=== PATIENT | female | born 1940 | race Caucasian/White ===

== ENCOUNTER → 2016-12-15 | Outpatient (CLI) | payer MEDICARE ==
[~2016-12-15] MED LIST: ACET1CAP18 PO; ASPI81CH7 CHEW; ATOR40TA16 PO; BACT2OIN TOPICAL; BEANTAB2 PO; BETH25 PO; CALCCHW25 CHEW; CENTTAB8 PO; COEN200C4 PO; COQ-100C2; CYCL5TAB PO; FEXO15TA PO; HYDR-3366 PO; HYOS0.127 PO; LACT3000; LACT4500 CHEW; LIPI40TA PO; LORA10TA PO; LYRI75CA PO; MECL-62 PO; MEIJ25CA; METO50TA PO; MULTTAB67 PO; NITRO QUICK SL; NORC5TAB PO; OLME1TAB13 PO; PROM25TA5 PO; SIME180C PO; TRAM50TA PO; TYLE325T PO; ZOFR4TAB3 SL; [UNRECOGNIZED DRUG - CODE] PO
[2016-12-15 13:48] LABS: FREE T4 0.98 NG/DL (0.76-1.46)
== END ==
LOC: PLAB 10:23
PROVIDERS: ATTEND Internal Medicine Endocrinology, Diabetes & Metabolism
DX: E04.2 Nontoxic multinodular goiter (principal)
CPT/HCPCS: 36415; 84439; 84443

== ENCOUNTER → 2017-03-09 | Outpatient (CLI) | payer MEDICARE ==
[2017-03-09 13:23] LABS: AUTOMATED NEUTROPHIL # 4.8 TH/MM3 (1.8-7.7); BASOPHIL % 0.4 % (0.0-2.0); EOSINOPHIL # 0.1 TH/MM3 (0-0.4); EOSINOPHIL % 1.1 % (0.0-4.0); HEMATOCRIT 39.4 % (35.0-46.0); HEMO FLAGS DIFF FINAL; LYMPH % 19.6 % (9.0-44.0); LYMPHOCYTE # 1.3 TH/MM3 (1.0-4.8); MEAN CELL VOLUME 91.1 FL (80.0-100.0); MEAN CORPUSCULAR HEMOGLOBIN 30.8 PG (27.0-34.0); MEAN CORPUSCULAR HGB CONC 33.9 % (32.0-36.0); MONO % 7.9 % (0.0-8.0); PLATELET COUNT 223 TH/MM3 (150-450); RED BLOOD COUNT 4.33 MIL/MM3 (4.00-5.30); RED CELL DISTRIBUTION WIDTH 14.3 % (11.6-17.2); WHITE BLOOD COUNT 6.7 TH/MM3 (4.0-11.0)
[2017-03-09 13:47] LABS: ALKALINE PHOSPHATASE 106 U/L (45-117); ALT (GPT) 29 U/L (10-53); ANION GAP 10 MEQ/L (5-15); AST (GOT) 17 U/L (15-37); BICARBONATE 27.4 MEQ/L (21.0-32.0); BLOOD UREA NITROGEN 15 MG/DL (7-18); CHLORIDE 100 MEQ/L (98-107); GLOMERULAR FILTRATION RATE 64 ML/MIN (>89); GLUCOSE,FASTING 104 MG/DL (74-99); HDL CHOLESTEROL 50.7 MG/DL (40.0-60.0); LDL CHOLESTEROL 108 MG/DL (0-99); POTASSIUM 4.1 MEQ/L (3.5-5.1); SODIUM (NA) 137 MEQ/L (136-145); TOTAL BILIRUBIN ADULT 0.4 MG/DL (0.2-1.0)
[2017-03-09 17:02] LABS: HEMOGLOBIN A1b 1.1 %; HEMOGLOBIN Ao 84.3 %; HEMOGLOBIN F 1.2 %; HEMOGLOBIN LA1C 1.9 %; HEMOGLOBIN P3 3.8 %
== END ==
LOC: PLAB 10:30
PROVIDERS: ATTEND Family Medicine
DX: E78.5 Hyperlipidemia, unspecified (principal); R73.01 Impaired fasting glucose; E04.2 Nontoxic multinodular goiter; E55.9 Vitamin D deficiency, unspecified
CPT/HCPCS: 36415; 80053; 80061; 82306; 83036; 84443; 85025

== ENCOUNTER 2017-04-06 03:54 | Observation (INO) | payer MEDICARE ==
[~2017-04-06] VITALS: Ht 172.7 cm; Wt 86.4 kg
[~2017-04-06 03:54] MED LIST changes: -ACET1CAP18 PO; -ATOR40TA16 PO; -BACT2OIN TOPICAL; -COQ-100C2; -LACT4500 CHEW; -ZOFR4TAB3 SL; -[UNRECOGNIZED DRUG - CODE] PO
[2017-04-06 03:56] VITALS: BP 132/60; PULSE 79; RESP 20; TEMP 97.6; O2SAT 95
[2017-04-06] MEDS ORDERED: SODIUM CHLOR 0.9% 1000 ML INJ 1,000 ML IV SCH ×2 (04:11→09:15)
[2017-04-06] MEDS ORDERED: ONDANSETRON HCL 4 MG/2 ML VIAL IVP ONE (04:15)
[2017-04-06] MEDS ORDERED: PANTOPRAZOLE SODIUM 40 MG VIAL IVP ONE (04:15)
[2017-04-06] MEDS ORDERED: SODIUM CHLORIDE 0.9% FLUSH 10 ML FLUSH IV FLUSH PRN ×2 (04:15→09:30)
[2017-04-06 04:35] LABS: AUTOMATED NEUTROPHIL # 9.9 TH/MM3 (1.8-7.7); BASOPHIL % 0.3 % (0.0-2.0); EOSINOPHIL # 0.1 TH/MM3 (0-0.4); EOSINOPHIL % 0.6 % (0.0-4.0); HEMATOCRIT 39.1 % (35.0-46.0); HEMO FLAGS DIFF FINAL; LYMPH % 4.4 % (9.0-44.0); LYMPHOCYTE # 0.5 TH/MM3 (1.0-4.8); MEAN CELL VOLUME 91.8 FL (80.0-100.0); MEAN CORPUSCULAR HEMOGLOBIN 30.6 PG (27.0-34.0); MEAN CORPUSCULAR HGB CONC 33.3 % (32.0-36.0); MONO % 2.6 % (0.0-8.0); NEUT % 92.1 % (16.0-70.0); PLATELET COUNT 193 TH/MM3 (150-450); RED BLOOD COUNT 4.26 MIL/MM3 (4.00-5.30); RED CELL DISTRIBUTION WIDTH 14.1 % (11.6-17.2); WHITE BLOOD COUNT 10.7 TH/MM3 (4.0-11.0)
[2017-04-06 04:44] LABS: APTT (PATIENT) 24.5 SEC (24.3-30.1); INTERNATIONAL NORMALIZED RATIO 1.1 RATIO; PROTHROMBIN TIME - PATIENT 11.7 SEC (9.8-11.6)
[2017-04-06] MEDS ORDERED: ACETAMINOPHEN 325 MG TAB PO ONE (04:45)
[2017-04-06 05:13] LABS: BICARBONATE 25.4 MEQ/L (21.0-32.0); POTASSIUM 3.9 MEQ/L (3.5-5.1)
[2017-04-06 05:15] LABS: INDIRECT BILIRUBIN 0.3 MG/DL (0.0-0.8); TOTAL BILIRUBIN ADULT 0.4 MG/DL (0.2-1.0)
[2017-04-06] MEDS ORDERED: IOHEXOL 350 MG/ML 10 ML VIAL (for RAD DIAG) IV ONE (05:37)
[2017-04-06] MEDS ORDERED: MORPHINE SULFATE 4 MG/ML INJ IV PUSH ONE (06:00)
[2017-04-06 06:02] LABS: BACTERIA, URINE RARE /hpf; BLOOD, URINE MOD (NEG); COMMENT (UR) CULT NOT INDICATED; CULTURE IF INDICATED CULT NOT INDICATED; GLUCOSE,URINE NEG (NEG); HYALINE CAST, URINE 3 /lpf (RARE); KETONE, URINE NEG (NEG); MUCUS URINE FEW /lpf (OCC); NITRITE,URINE NEG (NEG); RENAL EPITHELIAL CELLS <1 /hpf; SQUAMOUS EPITHELIAL CELL URINE <1 /hpf (0-5); TRANSITIONAL EPI CELLS, URINE <1 /hpf; URINE COLOR LIGHT-YELLOW (YELLW/STRAW)
--- NOTE | 2017-04-06 06:07 | RADRPT ---
EXAM DATE/TIME: 04/06/2017 05:27 [place] COMPARISON: No previous studies available for comparison. INDICATIONS : Vomiting and diarrhea today. IV CONTRAST: 90 cc Omnipaque 350 (iohexol) IV ORAL CONTRAST: No oral contrast ingested. RADIATION DOSE: 19.38 CTDIvol (mGy) MEDICAL HISTORY : Hypertension. Gastritis. CAD. Skin cancer. SURGICAL HISTORY : CABG Hysterectomy.Fusion, lumbar.Cardiac catherization. Ordaz rods. ENCOUNTER: Initial ACUITY: 1 day PAIN SCALE: 3/10 LOCATION: Bilateral upper quadrant TECHNIQUE: Volumetric scanning of the abdomen and pelvis was performed. Using automated exposure control and ad justment of the mA and/or kV according to patient size, radiation dose was kept as low as reasonably achievable to obtain optimal diagnostic quality images. FINDINGS: LOWER LUNGS: The visualized lower lungs are clear. LIVER: Homogeneous density without lesion. There is no dilation of the biliary tree. No calcified gallston es. There is mild hepatic steatosis. The gallbladder is unremarkable. SPLEEN: Normal size without lesion. PANCREAS: Within normal limits. KIDNEYS: Normal in size and shape. There is no mass, stone or hydronephrosis. ADRENAL GLANDS: Within normal limits. VASCULAR: There is no aortic aneurysm. BOWEL/MESENTERY: There is a small hiatal hernia. The stomach, small bowel, and colon demonstrate no acute abnormality. There is no free intraperitoneal air or fluid. ABDOMINAL WALL: Within normal limits. RETROPERITONEUM: There is no lymphadenopathy. BLADDER: No wall thickening or mass. REPRODUCTIVE: Within normal limits. INGUINAL: There is no lymphadenopathy or hernia. MUSCULOSKELETAL: Osteopenia, degenerative change and mild scoliosis is present. There are postoperative changes in the lumbar spine. CONCLUSION: 1. Nonobstructive bowel gas pattern with no inflammatory change. The terminal ileum and appendix are unremarkable. 2. Unremarkable gallbladder. 3. Mild hepatic steatosis. 4. Small hiatal hernia. Rolf Watkins MD on April 06, 2017 at 6:03 Board Certified Radiologist. This report was verified electronically.
[2017-04-06] MEDS ORDERED: SODIUM CHLOR 0.9% 1000 ML INJ 1,000 ML IV ONE (06:30)
--- NOTE | 2017-04-06 06:40 | PD ---
HPI Chief Complaint: GI Complaint Time Seen by Provider: 04:11 Travel History International Travel<30 days: No Contact w/Intl Traveler<30days: No Traveled to known affect area: No History of Present Illness HPI Patient is a 76-year-old female comes in complaining of nausea, vomiting, diarrhea. She says that it started tonight, she vomited several times and had diarrhea. She says she tried to go to sleep, but she woke up again and vomited again. She says she has some mild abdominal pain, but mostly she just feels queasy. She has not had any fever or chills. She says that she had a spinal injection performed yesterday morning, and did not seem to have any issues with it at the time. She denies any back pain currently. She denies any chest pain or shortness of breath. PFSH Past Medical History Arthritis: Yes Asthma: No Autoimmune Disease: Yes (FIBROMYALGIA) Blood Disorders: No Anxiety: Yes Depression: No Heart Rhythm Problems: Yes (PRIOR/DURING,AND AFTER CABG BUT HAS SINCE GONE AWAY ) Cancer: Yes (SKIN) Cardiac Catheterization: Yes Cardiovascular Problems: Yes (HTN, CAD, HEART CATH, AND (3) VESSEL CABG) High Cholesterol: Yes Chest Pain: Yes Congestive Heart Failure: No COPD: No Cerebrovascular Accident: No Coronary Artery Disease: Yes Diabetes: No Diminished Hearing: No Endocrine: No Fibromyalgia: Yes Gastrointestinal Disorders: Yes (LACTOSE IN JERILYN, GASTRITIS ) GERD: No Glaucoma: No Hepatitis: No Hiatal Hernia: No Hypertension: Yes Immune Disorder: No Kidney Stones: No Musculoskeletal: Yes (RIB AND STERNAL PAIN FIBROMYALGIA) Neurologic: No Psychiatric: No Reproductive: No Respiratory: No Migraines: No Myocardial Infarction: No Renal Failure: No Seizures: No Sleep Apnea: No Thyroid Disease: Yes (SMALL GOITER) Ulcer: No PNEUMOCCOCAL Vaccine (Year): 2010 ?: Not Past Surgical History Abdominal Surgery: No Appendectomy: No Body Medical Devices: MELENDEZ RODS IN BACK. Cardiac Surgery: Yes (TRIPLE BYPASS) Cholecystectomy: No Coronary Artery Bypass Graft: Yes (3WAY BYPASS IN 2007) Ear Surgery: No Endocrine Surgery: No Eye Surgery: No Genitourinary Surgery: No Gynecologic Surgery: Yes (HYST 2000) Hysterectomy: Yes Oral Surgery: No Pacemaker: No Thoracic Surgery: No Other Surgery: Yes (BACK 1983, HYSTERECTOMY) Social History Alcohol Use: Yes (OCCASIONAL) Tobacco Use: No Substance Use: No Allergies-Medications (Allergen,Severity, Reaction): Coded Allergies: Azithromycin (Verified Allergy, Severe, Nausea/Vomiting, 04/05/17) Bactrim (Verified Allergy, Severe, Hallucinations, 04/05/17) Zithromax (Verified Allergy, Severe, hives, 04/05/17) Indocin (Unverified Adverse Reaction, Severe, Nausea/Vomiting, 04/05/17) Lactose (Verified Adverse Reaction, Severe, GI INTOLERANT, 04/05/17) Reported Meds & Prescriptions Reported Meds & Active Scripts Active Phenergan (Promethazine HCl) 25 Mg Tab 25 Mg PO Q6H PRN Tramadol (Tramadol HCl) 50 Mg Tab 50 Mg PO Q8H PRN Reported Allyn Allergy (Fexofenadine HCl) 180 Mg Tab 180 Mg PO DAILY Lactaid (Lactase) 3,000 Unit Tab Antihistamine Allergy (Diphenhydramine HCl) 25 Mg Cap Multiple Vitamin 1 Tab 1 Tab PO DAILY Flexeril (Cyclobenzaprine HCl) 5 Mg Tab 5 Mg PO TID Lipitor (Atorvastatin Calcium) 40 Mg Tab 40 Mg PO HS Gas Relief (Simethicone) 180 Mg Cap 1 Cap PO DAILY Beano (Wlydp-I-Rokaxsfhvhzxl) 150 Unit Tab 300 Mg PO TID PRN Aspirin Children's (Aspirin) 81 Mg Chew 81 Mg CHEW DAILY Calcium + D & K (Calcium-Vitamins D & K) 500-1,000-40 Mg-Unit-Mcg Chew 1 Tab CHEW DAILY Coenzyme Q-10 High Potency (Coenzyme Q10 (Ubidecarenone)) 200 Mg Cap 100 Mg PO DAILY [place] (Hydrocodone-Acetaminophen) 10-325 Mg Tab 1 Tab PO Q6H PRN [place] (Hydrocodone-Acetaminophen) 5-325 mg Tab 1 Tab PO Q6H PRN Hyoscyamine Sulfate 0.125 Mg Sub 1 Tab PO PRN Loratadine 10 Mg Tab 10 Mg PO DAILY Meclizine (Meclizine HCl) 25 Mg Tab 25 Mg PO DIRECTED PRN Metoprolol Tartrate 50 Mg Tab 50 Mg PO BID Centrum Adults (Multiple Vitamins W/ Minerals) 1 Tab 1 Tab PO DAILY [Nitro-Quick] 0.4 Mg SL PRN Olmesartan 40 Mg Tab 40 Mg PO DAILY Lyrica (Pregabalin) 75 Mg Cap 50 Mg PO BID Tylenol (Acetaminophen) 325 Mg Tab 325 Mg PO BID PRN Urecholine (Bethanechol Chloride) 25 Mg Tab 25 Mg PO Q8HR Review of Systems Except as stated in HPI: all other systems reviewed are Neg General / Constitutional: No: Fever, Chills HENT: No: Headaches, Lightheadedness Cardiovascular: No: Chest Pain or Discomfort Respiratory: No: Shortness of Breath Gastrointestinal: Positive: Nausea, Vomiting, Diarrhea Genitourinary: No: Dysuria Skin: No Rash Neurologic: No: Weakness, Dizziness Physical Exam Narrative GENERAL: Awake and alert, in no acute distress. SKIN: Focused skin assessment warm/dry. HEAD: Atraumatic. Normocephalic. EYES: Pupils equal and round. No scleral icterus. ENT: Mucous membranes pink and moist. NECK: Trachea midline. No JVD. CARDIOVASCULAR: Regular rate and rhythm. No murmur appreciated. RESPIRATORY: No accessory muscle use. Clear to auscultation. Breath sounds equal bilaterally. GASTROINTESTINAL: Abdomen soft, non-tender, nondistended. MUSCULOSKELETAL: No obvious deformities. No clubbing. No cyanosis. No edema. NEUROLOGICAL: Awake and alert. No obvious cranial nerve deficits. Motor grossly within normal limits. Normal speech. PSYCHIATRIC: Appropriate mood and affect; insight and judgment normal. Data Data Last Documented VS Vital Signs Date Time Temp Pulse Resp B/P Pulse Ox O2 Delivery O2 Flow Rate FiO2 04/06/17 03:56 97.6 04/06/17 03:56 79 20 132/60 95 Orders Basic Metabolic Panel (Bmp) (04/06/17 04:11) Complete Blood Count With Diff (04/06/17 04:11) Lipase (04/06/17 04:11) Lactic Acid (04/06/17 04:11) Prothrombin Time / Inr (Pt) (04/06/17 04:11) Act Partial Throm Time (Ptt) (04/06/17 04:11) Urinalysis - C+S If Indicated (04/06/17 04:11) Ua Includes Microscopic (04/06/17 04:11) Ct Abd/Pel W Iv Contrast(Rout) (04/06/17 04:11) Iv Access Insert/Monitor (04/06/17 04:11) Ecg Monitoring (04/06/17 04:11) Oximetry (04/06/17 04:11) Ondansetron Inj (Zofran Inj) (04/06/17 04:15) Pantoprazole Inj (Protonix Inj) (04/06/17 04:15) Sodium Chlor 0.9% 1000 Ml Inj (Ns 1000 M (04/06/17 04:11) Sodium Chloride 0.9% Flush (Ns Flush) (04/06/17 04:15) Electrocardiogram (04/06/17 04:11) Hepatic Functional Panel (04/06/17 04:11) Acetaminophen (Tylenol) (04/06/17 04:45) Iohexol 350 Inj (Omnipaque 350 Inj) (04/06/17 05:37) Morphine Inj (Morphine Inj) (04/06/17 06:00) Sodium Chlor 0.9% 1000 Ml Inj (Ns 1000 M (04/06/17 06:30) Labs Laboratory Tests Test 04/06/17 04/06/17 04:20 05:45 White Blood Count 10.7 TH/MM3 Red Blood Count 4.26 MIL/MM3 Hemoglobin 13.0 GM/DL Hematocrit 39.1 % Mean Corpuscular Volume 91.8 FL Mean Corpuscular Hemoglobin 30.6 PG Mean Corpuscular Hemoglobin 33.3 % Concent Red Cell Distribution Width 14.1 % Platelet Count 193 TH/MM3 Mean Platelet Volume 7.4 FL Neutrophils (%) (Auto) 92.1 % Lymphocytes (%) (Auto) 4.4 % Monocytes (%) (Auto) 2.6 % Eosinophils (%) (Auto) 0.6 % Basophils (%) (Auto) 0.3 % Neutrophils # (Auto) 9.9 TH/MM3 Lymphocytes # (Auto) 0.5 TH/MM3 Monocytes # (Auto) 0.3 TH/MM3 Eosinophils # (Auto) 0.1 TH/MM3 Basophils # (Auto) 0.0 TH/MM3 CBC Comment DIFF FINAL Differential Comment Prothrombin Time 11.7 SEC Prothromb Time International 1.1 RATIO Ratio Activated Partial 24.5 SEC Thromboplast Time Sodium Level 141 MEQ/L Potassium Level 3.9 MEQ/L Chloride Level 106 MEQ/L Carbon Dioxide Level 25.4 MEQ/L Anion Gap 10 MEQ/L Blood Urea Nitrogen 14 MG/DL Creatinine 0.73 MG/DL Estimat Glomerular Filtration 78 ML/MIN Rate Random Glucose 147 MG/DL Lactic Acid Level 3.7 mmol/L Calcium Level 8.0 MG/DL Total Bilirubin 0.4 MG/DL Direct Bilirubin 0.1 MG/DL Indirect Bilirubin 0.3 MG/DL Aspartate Amino Transf 23 U/L (AST/SGOT) Alanine Aminotransferase 30 U/L (ALT/SGPT) Alkaline Phosphatase 116 U/L Total Protein 6.3 GM/DL Albumin 3.2 GM/DL Lipase 113 U/L Urine Color LIGHT-YELLOW Urine Turbidity CLEAR Urine pH 6.0 Urine Specific [place] 1.019 Urine Protein NEG mg/dL Urine Glucose (UA) NEG mg/dL Urine Ketones NEG mg/dL Urine Occult Blood MOD Urine Nitrite NEG Urine Bilirubin NEG Urine Urobilinogen LESS THAN 2.0 MG/DL Urine Leukocyte Esterase LARGE Urine RBC 2 /hpf Urine WBC 7 /hpf Urine Squamous Epithelial <1 /hpf Cells Urine Transitional Epithelial <1 /hpf Cells Urine Renal Epithelial Cells <1 /hpf Urine Bacteria RARE /hpf Urine Hyaline Casts 3 /lpf Urine Mucus FEW /lpf Microscopic Urinalysis Comment CULT NOT INDICATED MDM Medical Decision Making Medical Screen Exam Complete: Yes Emergency Medical Condition: Yes Medical Record Reviewed: Yes Interpretation(s) ECG shows sinus rhythm at 79, no ST elevation or depression, incomplete right bundle-branch block. Differential Diagnosis Gastroenteritis versus gastritis versus obstruction versus UTI versus colitis Narrative Course Patient is a 76-year-old female comes in complaining of nausea, vomiting, diarrhea. Exam shows no acute abdomen on these. IV established, labs sent. Labs show an elevated lactic acid to 3.7. Other labs are unremarkable. CT abdomen and pelvis performed shows no acute abnormalities. Patient does report vomiting quite a bit this evening, she is likely dehydrated. Patient was given IV fluids, Zofran, morphine for her chronic pain. She reports feeling better. She is able to drink water without vomiting. We'll discharge with prescription for Zofran. Patient advised follow-up with her doctors. Advised to drink plenty of fluids. Advised to eat a bland diet. Advised to return to the ED as needed for any worsening symptoms. Diagnosis Primary Impression: Nausea & vomiting Qualified Code: R11.2 - Non-intractable vomiting with nausea, unspecified vomiting type Patient Instructions: Acute Nausea and Vomiting (ED), General Instructions Additional Instructions: Follow up with your doctors. Take Zofran as needed for any nausea. Drink plenty of fluids. If you are feeling hungry, eat a bland diet. Return to the ED as needed for any worsening symptoms. Scripts Ondansetron Odt (Zofran Odt)4 Mg Tab4 Mg SL Q6HR PRN (Nausea/Vomiting) #10 TAB Ref 0 Prov:Dot Morrow MD 04/06/17 Disposition: 01 DISCHARGE HOME Condition: Stable Dot Morrow MD April 06, 2017 06:39
[2017-04-06] MEDS ORDERED: ZOFR4TAB3 SL (06:46)
[2017-04-06 07:36] VITALS: BP 146/67; PULSE 89; RESP 24; O2SAT 98
--- NOTE | 2017-04-06 08:19 | PD ---
Physical Exam Narrative I was asked by ED physician to repair a laceration to left knee and right lower leg. Patient has a 5 cm laceration prepatellar area left knee. Patient has a 8 centimeter laceration involving the right lower leg. 9 AM. I was informed by my nurse the patient has persistent nausea vomiting and generalized weakness. Data Data Last Documented VS Vital Signs Date Time Temp Pulse Resp B/P Pulse Ox O2 Delivery O2 Flow Rate FiO2 04/06/17 07:36 98 Room Air 04/06/17 07:36 89 24 146/67 04/06/17 03:56 97.6 Orders Basic Metabolic Panel (Bmp) (04/06/17 04:11) Complete Blood Count With Diff (04/06/17 04:11) Lipase (04/06/17 04:11) Lactic Acid (04/06/17 04:11) Prothrombin Time / Inr (Pt) (04/06/17 04:11) Act Partial Throm Time (Ptt) (04/06/17 04:11) Urinalysis - C+S If Indicated (04/06/17 04:11) Ua Includes Microscopic (04/06/17 04:11) Ct Abd/Pel W Iv Contrast(Rout) (04/06/17 04:11) Iv Access Insert/Monitor (04/06/17 04:11) Ecg Monitoring (04/06/17 04:11) Oximetry (04/06/17 04:11) Ondansetron Inj (Zofran Inj) (04/06/17 04:15) Pantoprazole Inj (Protonix Inj) (04/06/17 04:15) Sodium Chlor 0.9% 1000 Ml Inj (Ns 1000 M (04/06/17 04:11) Sodium Chloride 0.9% Flush (Ns Flush) (04/06/17 04:15) Electrocardiogram (04/06/17 04:11) Hepatic Functional Panel (04/06/17 04:11) Acetaminophen (Tylenol) (04/06/17 04:45) Iohexol 350 Inj (Omnipaque 350 Inj) (04/06/17 05:37) Morphine Inj (Morphine Inj) (04/06/17 06:00) Sodium Chlor 0.9% 1000 Ml Inj (Ns 1000 M (04/06/17 06:30) Labs Laboratory Tests Test 04/06/17 04/06/17 04:20 05:45 White Blood Count 10.7 TH/MM3 Red Blood Count 4.26 MIL/MM3 Hemoglobin 13.0 GM/DL Hematocrit 39.1 % Mean Corpuscular Volume 91.8 FL Mean Corpuscular Hemoglobin 30.6 PG Mean Corpuscular Hemoglobin 33.3 % Concent Red Cell Distribution Width 14.1 % Platelet Count 193 TH/MM3 Mean Platelet Volume 7.4 FL Neutrophils (%) (Auto) 92.1 % Lymphocytes (%) (Auto) 4.4 % Monocytes (%) (Auto) 2.6 % Eosinophils (%) (Auto) 0.6 % Basophils (%) (Auto) 0.3 % Neutrophils # (Auto) 9.9 TH/MM3 Lymphocytes # (Auto) 0.5 TH/MM3 Monocytes # (Auto) 0.3 TH/MM3 Eosinophils # (Auto) 0.1 TH/MM3 Basophils # (Auto) 0.0 TH/MM3 CBC Comment DIFF FINAL Differential Comment Prothrombin Time 11.7 SEC Prothromb Time International 1.1 RATIO Ratio Activated Partial 24.5 SEC Thromboplast Time Sodium Level 141 MEQ/L Potassium Level 3.9 MEQ/L Chloride Level 106 MEQ/L Carbon Dioxide Level 25.4 MEQ/L Anion Gap 10 MEQ/L Blood Urea Nitrogen 14 MG/DL Creatinine 0.73 MG/DL Estimat Glomerular Filtration 78 ML/MIN Rate Random Glucose 147 MG/DL Lactic Acid Level 3.7 mmol/L Calcium Level 8.0 MG/DL Total Bilirubin 0.4 MG/DL Direct Bilirubin 0.1 MG/DL Indirect Bilirubin 0.3 MG/DL Aspartate Amino Transf 23 U/L (AST/SGOT) Alanine Aminotransferase 30 U/L (ALT/SGPT) Alkaline Phosphatase 116 U/L Total Protein 6.3 GM/DL Albumin 3.2 GM/DL Lipase 113 U/L Urine Color LIGHT-YELLOW Urine Turbidity CLEAR Urine pH 6.0 Urine Specific [place] 1.019 Urine Protein NEG mg/dL Urine Glucose (UA) NEG mg/dL Urine Ketones NEG mg/dL Urine Occult Blood MOD Urine Nitrite NEG Urine Bilirubin NEG Urine Urobilinogen LESS THAN 2.0 MG/DL Urine Leukocyte Esterase LARGE Urine RBC 2 /hpf Urine WBC 7 /hpf Urine Squamous Epithelial <1 /hpf Cells Urine Transitional Epithelial <1 /hpf Cells Urine Renal Epithelial Cells <1 /hpf Urine Bacteria RARE /hpf Urine Hyaline Casts 3 /lpf Urine Mucus FEW /lpf Microscopic Urinalysis Comment CULT NOT INDICATED MDM Supervised Visit with MADELEINE: No Narrative Course 9 AM. I was inform them and knows the patient has persistent nausea vomiting and generalized malaise and weakness. Normal saline solution 1 25 cc an hour. Reglan 10 mg IV. Benadryl 25 mg IV. Procedures Procedure Narrative LACERATION LOCATION: Left knee and right lower leg LENGTH: 13 cm NUMBER OF STITCHES/SARAH: Dermabond The wound was copiously irrigated and explored without evidence of foreign body , tendon injury or neurovascular injury. The wound was closed using Dermabond. This was a single layer repair. A sterile dressing was applied. The patient was advised to keep the dressing clean and dry. Patient tolerated the procedure well. Diagnosis Primary Impression: Laceration of left knee Qualified Code: S81.012A - Laceration of left knee, initial encounter Additional Impressions: Laceration of right lower leg Qualified Code: S81.811A - Laceration of right lower leg, initial encounter Gastroenteritis Intractable nausea and vomiting Qualified Code: R11.2 - Intractable vomiting with nausea, unspecified vomiting type Patient Instructions: General Instructions, Narcotic given in the ED, Ondansetron (By mouth, Into the mouth), Acute Nausea and Vomiting (ED) Departure Forms: Tests/Procedures Additional Instruction: Follow up with your doctors. Take Zofran as needed for any nausea. Drink plenty of fluids. If you are feeling hungry, eat a bland diet. Return to the ED as needed for any worsening symptoms. Keep the wound clean and dry for 14 days. Follow-up with personal physician. Return as needed. Scripts Ondansetron Odt (Zofran Odt)4 Mg Tab4 Mg SL Q6HR PRN (Nausea/Vomiting) #10 TAB Ref 0 Prov:Dot Morrow MD 04/06/17 Disposition: 01 DISCHARGE HOME Condition: Stable Sunil Villaseñor MD April 06, 2017 08:18
[2017-04-06] MEDS ORDERED: diphenhydrAMINE HCL 50 MG/ML VIAL IV PUSH ONE (09:15)
[2017-04-06] MEDS ORDERED: METOCLOPRAMIDE HCL 10 MG/2 ML VIAL IV PUSH ONE (09:15)
[2017-04-06] MEDS ORDERED: ONDANSETRON HCL 4 MG/2 ML VIAL IVP PRN (09:30)
[2017-04-06] MEDS ORDERED: NALOXONE HCL 0.4 MG/ML AMP IV PRN (09:30)
[2017-04-06] MEDS: SODIUM CHLOR 0.9% 1000 ML INJ 1,000 ML IV SCH ×2 (09:47→22:05)
[2017-04-06] MEDS ORDERED: THIAMINE INJ 100 MG in SODIUM CHLORIDE 0.9% INJ 100 ML IV ONE (10:00)
[2017-04-06 11:21] VITALS: BP 137/63; PULSE 90; RESP 22; TEMP 97.6; O2SAT 95
--- NOTE | 2017-04-06 13:50 | HHI.HP ---
[facility] Aleksandra Sutherland MD Admission Diagnosis intractable nausea vomiting. Extremity lacerations Diagnoses: Chief Complaint: nausea, vomiting, diarrhea Travel History International Travel<30 Days: No Contact w/Intl Traveler <30 Da: No Traveled to Known Affected Are: No History of Present Illness 76 y/o female with a history of chronic pain, arthritis, fibromyalgia, cad, htn , and anxiety presented to the ED with complaints of nausea,vomiting and diarrhea since yesterday. She states she was seen at her pain management DR and was given an injection of Phenol, which was a new medication for her. She went home and a few hours later she developed these symptoms. She thought she could go to sleep and she would feel better but she woke up and vomited again. She felt very week and fell when getting out of bed. Denies hitting her head or LOC. Denies any further diarrhea since admission, but she has been unable to tolerate anything by mouth without vomiting. She only has abdominal pain when she has vomiting episodes, but otherwise she has no pain. She does state the Zofran is helping. Denies any chest pain, sob, fever or chills. Review of Systems Constitutional: COMPLAINS OF: Fatigue, DENIES: Fever, Chills Respiratory: DENIES: Cough, Shortness of breath Cardiovascular: DENIES: Chest pain, Lower Extremity Edema Gastrointestinal: COMPLAINS OF: Abdominal pain, Diarrhea, Nausea, Vomiting, DENIES: Constipation Genitourinary: DENIES: Dysuria Musculoskeletal: COMPLAINS OF: Joint pain (left knee), Back pain (chronic), DENIES: Neck pain Hematologic/lymphatic: DENIES: Lymphadenopathy Neurologic: DENIES: Headache Psychiatric: DENIES: Anxiety Past Family Social History Past Medical History Arthritis Fibromyalgia chronic pain CAD HTN Anxiety Lactose intolerant Past Surgical History Hysterectomy Ordaz [place] placement CABG Reported Medications Reported Meds & Active Scripts Active Zofran Odt (Ondansetron Odt) 4 Mg Tab 4 Mg SL Q6HR PRN Phenergan (Promethazine HCl) 25 Mg Tab 25 Mg PO Q6H PRN Tramadol (Tramadol HCl) 50 Mg Tab 50 Mg PO Q8H PRN Reported Allyn Allergy (Fexofenadine HCl) 180 Mg Tab 180 Mg PO DAILY Lactaid (Lactase) 3,000 Unit Tab Antihistamine Allergy (Diphenhydramine HCl) 25 Mg Cap Multiple Vitamin 1 Tab 1 Tab PO DAILY Flexeril (Cyclobenzaprine HCl) 5 Mg Tab 5 Mg PO TID Lipitor (Atorvastatin Calcium) 40 Mg Tab 40 Mg PO HS Gas Relief (Simethicone) 180 Mg Cap 1 Cap PO DAILY Beano (Xxnuq-S-Acpeucfgxtlbf) 150 Unit Tab 300 Mg PO TID PRN Aspirin Children's (Aspirin) 81 Mg Chew 81 Mg CHEW DAILY Calcium + D & K (Calcium-Vitamins D & K) 500-1,000-40 Mg-Unit-Mcg Chew 1 Tab CHEW DAILY Coenzyme Q-10 High Potency (Coenzyme Q10 (Ubidecarenone)) 200 Mg Cap 100 Mg PO DAILY [place] (Hydrocodone-Acetaminophen) 10-325 Mg Tab 1 Tab PO Q6H PRN [place] (Hydrocodone-Acetaminophen) 5-325 mg Tab 1 Tab PO Q6H PRN Hyoscyamine Sulfate 0.125 Mg Sub 1 Tab PO PRN Loratadine 10 Mg Tab 10 Mg PO DAILY Meclizine (Meclizine HCl) 25 Mg Tab 25 Mg PO DIRECTED PRN Metoprolol Tartrate 50 Mg Tab 50 Mg PO BID Centrum Adults (Multiple Vitamins W/ Minerals) 1 Tab 1 Tab PO DAILY [Nitro-Quick] 0.4 Mg SL PRN Olmesartan 40 Mg Tab 40 Mg PO DAILY Lyrica (Pregabalin) 75 Mg Cap 50 Mg PO BID Tylenol (Acetaminophen) 325 Mg Tab 325 Mg PO BID PRN Urecholine (Bethanechol Chloride) 25 Mg Tab 25 Mg PO Q8HR Allergies: Coded Allergies: Azithromycin (Verified Allergy, Severe, Nausea/Vomiting, 04/05/17) Bactrim (Verified Allergy, Severe, Hallucinations, 04/05/17) Zithromax (Verified Allergy, Severe, hives, 04/05/17) Indocin (Unverified Adverse Reaction, Severe, Nausea/Vomiting, 04/05/17) Lactose (Verified Adverse Reaction, Severe, GI INTOLERANT, 04/05/17) Active Ordered Medications Current Medications Medications (Trade) Dose Ordered Sig/Meenu Route Start Time Stop Time Status Last Admin (NS 1000 ml Inj) 1,000 ml @ 100 mls/hr Q10H IV 04/06/17 10:00 04/06/17 09:47 (NS Flush) 2 ml UNSCH PRN IV FLUSH 04/06/17 09:30 (NS Flush) 2 ml BID IV FLUSH 04/06/17 21:00 (Zofran Inj) 4 mg Q6H PRN IVP 04/06/17 09:30 (Narcan Inj) 0.4 mg UNSCH PRN IV 04/06/17 09:30 Family History Dad: DM Brother: DM, Prostate CA Mom: Breast CA Social History Tobacco use: Denies Alcohol use: Denies Illicit drug use: Denies Physical Exam Vital Signs Vital Signs Date Time Temp Pulse Resp B/P Pulse Ox O2 Delivery O2 Flow Rate FiO2 04/06/17 11:21 97.6 90 22 137/63 95 04/06/17 07:36 98 Room Air 04/06/17 07:36 89 24 146/67 98 Room Air 04/06/17 03:56 97.6 04/06/17 03:56 79 20 132/60 95 Physical Exam GENERAL: This is a well-nourished, well-developed patient, who is having nausea and vomiting SKIN: Scattered ecchymoses bilateral arms. RLeft elbow skin tear. Left knee laceration and right lower leg laceration with Dermabond and Shaka. HEAD: Atraumatic. Normocephalic. EYES: Pupils equal round and reactive. Extraocular motions intact. No scleral icterus. No injection or drainage. ENT: Nose without bleeding, purulent drainage or septal hematoma. Airway patent. NECK: Trachea midline. No JVD. Supple, nontender, no meningeal signs. CARDIOVASCULAR: Regular rate and rhythm without murmurs, gallops, or rubs. RESPIRATORY: Clear to auscultation. Breath sounds equal bilaterally. No wheezes , rales, or rhonchi. GASTROINTESTINAL: Abdomen soft, non-tender, nondistended. No hepato-splenomegaly , or palpable masses. No guarding. MUSCULOSKELETAL: Extremities without clubbing, cyanosis, or edema. Left knee pain. No calf tenderness. NEUROLOGICAL: Awake and alert. Motor and sensory grossly within normal limits. Normal speech. Laboratory Laboratory Tests Test 04/06/17 04/06/17 04:20 05:45 White Blood Count 10.7 Red Blood Count 4.26 Hemoglobin 13.0 Hematocrit 39.1 Mean Corpuscular Volume 91.8 Mean Corpuscular Hemoglobin 30.6 Mean Corpuscular Hemoglobin 33.3 Concent Red Cell Distribution Width 14.1 Platelet Count 193 Mean Platelet Volume 7.4 Neutrophils (%) (Auto) 92.1 Lymphocytes (%) (Auto) 4.4 Monocytes (%) (Auto) 2.6 Eosinophils (%) (Auto) 0.6 Basophils (%) (Auto) 0.3 Neutrophils # (Auto) 9.9 Lymphocytes # (Auto) 0.5 Monocytes # (Auto) 0.3 Eosinophils # (Auto) 0.1 Basophils # (Auto) 0.0 CBC Comment DIFF FINAL Differential Comment Prothrombin Time 11.7 Prothromb Time International 1.1 Ratio Activated Partial 24.5 Thromboplast Time Sodium Level 141 Potassium Level 3.9 Chloride Level 106 Carbon Dioxide Level 25.4 Anion Gap 10 Blood Urea Nitrogen 14 Creatinine 0.73 Estimat Glomerular Filtration 78 Rate Random Glucose 147 Lactic Acid Level 3.7 Calcium Level 8.0 Total Bilirubin 0.4 Direct Bilirubin 0.1 Indirect Bilirubin 0.3 Aspartate Amino Transf 23 (AST/SGOT) Alanine Aminotransferase 30 (ALT/SGPT) Alkaline Phosphatase 116 Total Protein 6.3 Albumin 3.2 Lipase 113 Urine Color LIGHT-YELLOW Urine Turbidity CLEAR Urine pH 6.0 Urine Specific [place] 1.019 Urine Protein NEG Urine Glucose (UA) NEG Urine Ketones NEG Urine Occult Blood MOD Urine Nitrite NEG Urine Bilirubin NEG Urine Urobilinogen LESS THAN 2.0 Urine Leukocyte Esterase LARGE Urine RBC 2 Urine WBC 7 Urine Squamous Epithelial <1 Cells Urine Transitional Epithelial <1 Cells Urine Renal Epithelial Cells <1 Urine Bacteria RARE Urine Hyaline Casts 3 Urine Mucus FEW Microscopic Urinalysis Comment CULT NOT INDICATED Result Diagram: 04/06/1741904/06/17419 Imaging Last Impressions Abdomen/Pelvis CT 04/06/17410 Signed Impressions: Service Date/Time: Thursday, April 06, 2017 05:27 - CONCLUSION: 1. Nonobstructive bowel gas pattern with no inflammatory change. The terminal ileum and appendix are unremarkable. 2. Unremarkable gallbladder. 3. Mild hepatic steatosis. 4. Small hiatal hernia. Rolf Watkins MD Assessment and Plan Problem List: (1) Intractable nausea and vomiting ICD Code: R11.2 Status: Acute (2) Adverse drug experience ICD Code: T88.7XXA Status: Acute Assessment and Plan 76 y/o female with a history of chronic pain, arthritis, fibromyalgia, cad, htn , and anxiety presented to the ED with complaints of nausea,vomiting and diarrhea since yesterday. She states she was seen at her pain management DR and was given an injection of Phenol, which was a new medication for her. Intractable nausea and vomiting, likely due to an adverse drug reaction due to Phenol injection -Consult GI for recommendations, patient sees Dr. Kong outpatient -IVF hydration -Antiemetics as needed Physical deconditioning, pt is fatigue due to n/v/d -PT eval and treat Lactic acidosis, likely related to fluid loss Lactic acid 3.7 -Thiamine IV given -Repeat lactic acid today -Cont IVF Chronic Hyperlipidemia, HTN, and chronic pain -Hold home medications for now since patient is having vomiting. Will resume when patient is tolerating diet. DVT prophylaxis: SCDs Discussed Condition With Patient and Dr. Bermuen The exam, history, and the medical decision-making described in the above note were completed with the assistance of the mid-level provider. I reviewed and agree with the findings presented. I attest that I had a [id number] encounter with the patient on the same day, and personally performed and documented my assessment and findings in the medical record.patient had pain in the legs following nerve ablation, as expected,and took tramadol, followed by nausea and vomiting.she reports issues with narcotics in the past. She was ready to go home, however got nausea and vomiting after receiving morphine. She appears comfortable but anxious about further nausea and vomiting. We'll continue to monitor, plan for discharge tomorrow morning. Avoid narcotics. Problem Qualifiers (1) Intractable nausea and vomiting: Qualified Code: R11.2 - Intractable vomiting with nausea, unspecified vomiting type Negra Obrien April 06, 2017 13:50 Edi Berumen MD April 07, 2017 08:43
[2017-04-06 14:45] VITALS: BP 114/57; PULSE 104; RESP 20; TEMP 97.8; O2SAT 95
[2017-04-06] MEDS ORDERED: DOCUSATE SODIUM 50 MG/SENNA 8.6 MG TAB PO SCH (14:45)
[2017-04-06] MEDS ORDERED: PILL SPLITTER OTHER PRN (15:45)
[2017-04-06] MEDS: ACETAMINOPHEN 325 MG TAB PO PRN ×2 (15:47→22:03)
--- NOTE | 2017-04-06 15:49 | EKG ---
Date Performed: 04/06/2017 Time Performed: 04:19:22 PTAGE: 76 years EKG: Sinus rhythm INCOMPLETE RIGHT BUNDLE BRANCH BLOCK MODERATE T-WAVE ABNORMALITY, CONSIDER ANTERIOR ISCHEMIA Compare d to the previous tracing QT interval is shorter ABNORMAL ECG PREVIOUS TRACING : 08/30/2016 02.42 DOCTOR: Brent Tim Interpretating Date/Time 04/06/2017 15:47:54
--- NOTE | 2017-04-06 16:11 | PD.CONS ---
GI Consult GI Consult SEE FORMAL GI CONSULT DICTATED TODAY ALSO ASSESSMENT/PLAN: 1. N/V/D--occurred 3-4 hours hours after eating [place] soup. ?food borne process ?viral ?medication 2. Hx of gastric dysmotility 3. hx of colon polyps PLAN: 1. C. diff 2. supportive care with antiemetic and IV fluids 3. Dr. Narayan will see pt tomorrow It was a pleasure seeing Naz Layne . Thank you for this consult. Entered by: Marc Singh MD April 06, 2017 16:11
[2017-04-06] MEDS ORDERED: LIDOCAINE HCL 5% PATCH T-DERMAL SCH (17:00)
[2017-04-06] MEDS: CYCLOBENZAPRINE HCL 10 MG TAB PO SCH (18:13)
[2017-04-06] MEDS ORDERED: ATORVASTATIN 40 MG TAB PO SCH (21:00)
[2017-04-06 21:02] VITALS: BP 122/64; PULSE 104; RESP 18; TEMP 98.4; O2SAT 94
[2017-04-06] MEDS: PREGABALIN 25 MG CAP PO SCH (21:59)
[2017-04-06] MEDS: BETHANECHOL CHL 25 MG TAB PO SCH (22:00)
[2017-04-06] MEDS: METOPROLOL TARTRATE 50 MG TAB PO SCH (22:02)
[2017-04-06] MEDS: SODIUM CHLORIDE 0.9% FLUSH 10 ML FLUSH IV FLUSH SCH (22:03)
[2017-04-06 23:52] VITALS: BP 132/69; PULSE 68; RESP 18; TEMP 98.8; O2SAT 98
[2017-04-07] MEDS ORDERED: REMOVE OLD LIDOCAINE PATCH T-DERMAL SCH (05:00)
[2017-04-07] MEDS: ACETAMINOPHEN 325 MG TAB PO PRN (05:47)
[2017-04-07 05:48] LABS: AUTOMATED NEUTROPHIL # 5.5 TH/MM3 (1.8-7.7); BASOPHIL % 0.4 % (0.0-2.0); EOSINOPHIL # 0.1 TH/MM3 (0-0.4); EOSINOPHIL % 1.4 % (0.0-4.0); HEMATOCRIT 37.7 % (35.0-46.0); HEMO FLAGS DIFF FINAL; LYMPH % 13.7 % (9.0-44.0); MEAN CELL VOLUME 91.2 FL (80.0-100.0); MEAN CORPUSCULAR HEMOGLOBIN 30.5 PG (27.0-34.0); MEAN CORPUSCULAR HGB CONC 33.4 % (32.0-36.0); MONO % 5.7 % (0.0-8.0); NEUT % 78.8 % (16.0-70.0); PLATELET COUNT 232 TH/MM3 (150-450); RED BLOOD COUNT 4.14 MIL/MM3 (4.00-5.30); RED CELL DISTRIBUTION WIDTH 14.5 % (11.6-17.2)
[2017-04-07 05:56] VITALS: BP 133/74; PULSE 74; RESP 18; TEMP 97.9; O2SAT 98
[2017-04-07] MEDS: BETHANECHOL CHL 25 MG TAB PO SCH (05:56)
[2017-04-07 06:05] LABS: BICARBONATE 26.3 MEQ/L (21.0-32.0); POTASSIUM 3.7 MEQ/L (3.5-5.1)
[2017-04-07 07:59] VITALS: BP 125/63; PULSE 73; RESP 17; TEMP 97.6; O2SAT 95
[2017-04-07] MEDS ORDERED: ASPIRIN 81 MG CHEW TAB CHEW SCH (09:00)
[2017-04-07] MEDS: SODIUM CHLORIDE 0.9% FLUSH 10 ML FLUSH IV FLUSH SCH (09:00)
[2017-04-07] MEDS: METOPROLOL TARTRATE 50 MG TAB PO SCH (09:00)
[2017-04-07] MEDS ORDERED: LOSARTAN 50 MG TAB PO SCH (09:00)
[2017-04-07] MEDS: PREGABALIN 25 MG CAP PO SCH (09:11)
[2017-04-07] MEDS: CYCLOBENZAPRINE HCL 10 MG TAB PO SCH (09:11)
--- NOTE | 2017-04-07 09:26 | HHI.PR ---
Subjective Remarks Follow up nausea, vomiting, and diarrhea. Patient states she has had no further nausea, vomiting or diarrhea. She just wants to go home. She uses a walker at home and goes to Physical therapy twice a week. Does not want to go to a SNF. Denies any pain, sob, fever or chills. Objective Vitals Vital Signs Date Time Temp Pulse Resp B/P Pulse Ox O2 Delivery O2 Flow Rate FiO2 04/07/17 07:59 97.6 73 17 125/63 95 04/07/17 05:56 97.9 74 18 133/74 98 04/06/17 23:52 98.8 68 18 132/69 98 04/06/17 23:04 18 04/06/17 23:04 18 04/06/17 21:02 98.4 104 18 122/64 94 04/06/17 14:45 97.8 104 20 114/57 95 04/06/17 11:21 97.6 90 22 137/63 95 I/O 04/06/17 04/06/17 04/06/17 04/07/17 04/07/17 04/07/17 07:00 15:00 23:00 07:00 15:00 23:00 Intake Total 1000 ml 600 ml Output Total 0 ml Balance 1000 ml 600 ml Intake Oral 600 ml IV Total 1000 ml Output Urine Total 0 ml Stool Total 0 ml # Voids 3 # Bowel Movements 1 Result Diagram: 04/07/17 0505 04/07/17 0505 Imaging Last Impressions Abdomen/Pelvis CT 04/06/17 0411 Signed Impressions: Service Date/Time: Thursday, April 06, 2017 05:27 - CONCLUSION: 1. Nonobstructive bowel gas pattern with no inflammatory change. The terminal ileum and appendix are unremarkable. 2. Unremarkable gallbladder. 3. Mild hepatic steatosis. 4. Small hiatal hernia. Rolf Watkins MD Objective Remarks GENERAL: This is a well-nourished, well-developed patient, who is having nausea and vomiting SKIN: Scattered ecchymoses bilateral arms. RLeft elbow skin tear. Left knee laceration and right lower leg laceration with Dermabond and Shaka. HEAD: Atraumatic. Normocephalic. EYES: Pupils equal round and reactive. Extraocular motions intact. No scleral icterus. No injection or drainage. ENT: Nose without bleeding, purulent drainage or septal hematoma. Airway patent. NECK: Trachea midline. No JVD. Supple, nontender, no meningeal signs. CARDIOVASCULAR: Regular rate and rhythm without murmurs, gallops, or rubs. RESPIRATORY: Clear to auscultation. Breath sounds equal bilaterally. No wheezes , rales, or rhonchi. GASTROINTESTINAL: Abdomen soft, non-tender, nondistended. No hepato-splenomegaly , or palpable masses. No guarding. MUSCULOSKELETAL: Extremities without clubbing, cyanosis, or edema. Left knee pain. No calf tenderness. NEUROLOGICAL: Awake and alert. Motor and sensory grossly within normal limits. Normal speech. Medications and IVs Current Medications Medications (Trade) Dose Ordered Sig/Meenu Route Start Time Stop Time Status Last Admin (NS 1000 ml Inj) 1,000 ml @ 100 mls/hr Q10H IV 04/06/17 10:00 04/06/17 22:05 (NS Flush) 2 ml UNSCH PRN IV FLUSH 04/06/17 09:30 (NS Flush) 2 ml BID IV FLUSH 04/06/17 21:00 04/06/17 22:03 (Zofran Inj) 4 mg Q6H PRN IVP 04/06/17 09:30 (Narcan Inj) 0.4 mg UNSCH PRN IV 04/06/17 09:30 (Adriana-Colace) 1 tab BID PO 04/06/17 14:45 Hold (Tylenol) 650 mg Q4H PRN PO 04/06/17 15:45 04/07/17 05:47 (Flexeril) 5 mg TID PO 04/06/17 18:00 04/07/17 09:11 (Lyrica) 50 mg BID PO 04/06/17 21:00 04/07/17 09:11 (Lidoderm 5% Patch.12 Hr) 1 patch Q24H T-DERMAL 04/06/17 17:00 (Pill Splitter) 1 ea UNSCH PRN OTHER 04/06/17 15:45 Miscellaneous Information 1 Q24H T-DERMAL 04/07/17 05:00 (Aspirin Chew) 81 mg DAILY CHEW 04/07/17 09:00 04/07/17 09:11 (Lipitor) 40 mg HS PO 04/06/17 21:00 (Urecholine) 25 mg Q8HR PO 04/06/17 22:00 (Lopressor) 50 mg BID PO 04/06/17 21:00 04/07/17 09:00 (Cozaar) 100 mg DAILY PO 04/07/17 09:00 04/07/17 09:11 A/P Problem List: (1) Intractable nausea and vomiting ICD Code: R11.2 Status: Acute (2) Adverse drug experience ICD Code: T88.7XXA Status: Acute Assessment and Plan 76 y/o female with a history of chronic pain, arthritis, fibromyalgia, cad, htn , and anxiety presented to the ED with complaints of nausea,vomiting and diarrhea since yesterday. She states she was seen at her pain management DR and was given an injection of Phenol, which was a new medication for her. Intractable nausea and vomiting, likely due to an adverse drug reaction due to Phenol injection -Consult GI for recommendations, patient sees Dr. Kong outpatient, recommends supportive care with antiemetics and IV fluids -IVF hydration -Antiemetics as needed -Change to heart healthy diet, Pt tolerated breakfast Physical deconditioning, pt is fatigue due to n/v/d -PT eval and treat, recommended rehab, pt declines, states she does PT outpatient 2x a week -Instructed patient to continue rehab and use walker when ambulating, Pt verbalizes understanding Lactic acidosis, likely related to fluid loss, resolved Lactic acid 3.7, resolved 1.6 -Thiamine IV given -DC IVF Chronic Hyperlipidemia, HTN, and chronic pain -Home medications restarted DVT prophylaxis: SCDs Discharge patient to home Condition on discharge: Improved Heart Healthy Diet as tolerated Ad Ana activity, use walker when ambulating Rx written: none, continue home medications as prescribed Follow-up with primary care physician in 2-3 days, GI in 1-2 weeks Discharge Planning If patient tolerates breakfast and is cleared by GI Problem Qualifiers (1) Intractable nausea and vomiting: Qualified Code: R11.2 - Intractable vomiting with nausea, unspecified vomiting type Negra Obrien April 07, 2017 09:26
--- NOTE | 2017-04-07 09:43 | MB ---
cc: NEGRA COONEY JOANNE D. M.D. STELLA, GREGORY J. M.D. PASRICHA, SUNIL P. M.D. DATE OF CONSULTATION 04/06/2017 DATE OF 1940 REASON FOR CONSULTATION I am asked to see the patient at the request of Dr. Negra Cooney for evaluation of nausea, vomiting, diarrhea. HISTORY The patient is a pleasant 76-year-old white female who is followed by Dr. Kong in the office. She has some vague bloating type of discomfort thought related to some form of gastric dysmotility and she periodically takes bethanechol. She also has a history of adenomatous hyperplastic colon polyps, as well as intermittent heartburn. Apparently she has a history of fibromyalgia and various musculoskeletal problems and she underwent a phenol injection in her bilateral hips ( sacroiliac area ). She felt sore. This was yesterday morning and she felt sore and she went home and she had a light lunch and for dinner her opened up a can of chili soup. She did not eat much of it but in retrospect she thinks the did not heat the soup up to a boil. She ate the soup and did not feel that great afterwards. She felt somewhat bloated but this can be her baseline problem at times. She went to bed and at about 3 or 4 hours later she woke up with a violent episode of nausea and vomiting and episodes of diarrhea. There is no blood in the vomitus or diarrhea. She tried to get out of bed but she actually fell down and experienced several lacerations to elbows and knees and excoriations. Due to weakness, tiredness and fatigue and lightheadedness they brought her to the emergency room. In the emergency room she had increased nausea, vomiting but the diarrhea has improved. She denies any recent travel history, intake of unusual foods, any well water intake. No one exposed at the meal. No one else who had the food was ill. There is no antibiotic usage. The patient never had anything like this in the past. She feels actually better now but is very sore. Not mentioned above just before she vomited she took tramadol and Phenergan also. The Phenergan because she felt that bloating sensation. The patient denies any dysphagia or heartburn right now. No melena, hematochezia or constipation. PAST MEDICAL HISTORY Significant for: 1. Coronary artery disease. 2. Hypertension. 3. Irritable bowel syndrome. 4. Fibromyalgia. 5. Adenomatous colon polyps. 6. Possible gastrointestinal dysmotility. 7. Heartburn. 8. Colonic diverticulosis. 9. Dyslipidemia. 10. Coronary artery disease. 11. Intermittent chest pain which is better now. 12. Goiter. PAST SURGICAL HISTORY Significant for: 1. Coronary artery bypass graft. 2. Hysterectomy. 3. Back surgery. 4. Ordaz rods in the back. SOCIAL HISTORY Alcohol very rarely. Does not smoke. ALLERGIES AZITHROMYCIN, BACTRIM, ZITHROMAX, INDOCIN, LACTOSE. MEDICATIONS Current medications as an outpatient: 1. Phenergan. 2. Tramadol. 3. Lactase. 4. Antihistamines/Benadryl. 5. Lipitor. 6. Flexeril. 7. Aspirin. 8. Beano. 9. Co enzyme Q. 10. [place]. 11. Levsin. 12. Loratadine. 13. Meclizine. 14. Metoprolol. 15. Lyrica. 16. Tylenol. 17. Urecholine/bethanechol. REVIEW OF SYSTEMS CONSTITUTIONAL: No weight loss or fevers. CARDIOPULMONARY: No chest pain, palpitations, wheezing or shortness of breath at this time. GASTROINTESTINAL: Please see above. Otherwise unremarkable 10 point review of systems except for back pain and excoriations and laceration after she fell out of bed. PHYSICAL EXAMINATION VITAL SIGNS: Blood pressure is 114/57, pulse 104, respiratory rate 20, temperature 97.8. GENERAL: In general she is an overweight white female resting comfortably at this time. She has multiple excoriations on elbows and her legs and knees which are covered with bandages. HEENT: Pupils are equal, round and reactive to light. No obvious scleral icterus. Oropharynx clear, had dental caries. No tongue deviation or candidal lesion. Hearing was intact. NECK: Supple without thyromegaly or lymphadenopathy. LUNGS: Clear to auscultation and percussion. HEART: Regular rate and rhythm. No gross murmurs are heard. ABDOMEN: Protuberant. No organomegaly or masses. No ascites or hernias. Bowel sounds are positive in quadrants. Soft and nontender. EXTREMITIES: Have multiple excoriations as mentioned above. No cyanosis or clubbing. NEUROLOGIC: Her Cranial nerves II through XII are grossly intact. No gross sensory motor deficits. I did not assess her gait. RECTAL: Exam was not done. Medications in the hospital include: 1. Lyrica. 2. Flexeril. 3. Tylenol. 4. Lidocaine patch. 5. Adriana-Colace. 6. Zofran. 7. Narcan. IMAGING CT scan of the abdomen and pelvis was done which revealed fatty liver, small hernia, unremarkable gallbladder, non-obstructive bowel gas pattern and mild scoliosis present. The terminal ileum and appendix were unremarkable. LABORATORY DATA Labs revealed white blood cell count of 10,700, hemoglobin of 13, hematocrit 39, MCV was 91.8, platelet count of 192,000. Chemistries revealed SGOT of 23, SGPT of 30, alkaline phosphatase 116 was normal. Lipase was 113 was normal. Total bilirubin 0.4. BUN 14, creatinine 0.73. Lactic acid elevated at 3.7. Blood sugar 147, elevated. IMPRESSION 1. Nausea and vomiting, diarrhea. This occurred three to four hours after eating chili soup. I suspect this is a food borne process. However, she did take some tramadol that may have played a role in the situation. This may be a norovirus or some form of virus also. Cannot rule out C. difficile although she has not had any antibiotics. I do not think the phenol injection played a role in this situation. 2. History of possible gastric dysmotility - she uses bethanechol. 3. History of colon polyps in the past. RECOMMENDATIONS 1. At this time no procedure is planned and the best treatment is supportive with IV fluids and antiemetics. 2. Please check a C. Difficile. 3. Please stop Adriana-Colace for now. 4. Further recommendations depending on how she does. 5. Dr. Narayan will see the patient tomorrow and make further recommendations. MD PAYTON Saavedra/GAVI /4:15 PM /9:28 AM [facility]Whitney
--- NOTE | 2017-04-07 10:48 | HHI.GIFU ---
Subjective Remarks Feeling much better no further vomiting or GI sxs wants to go home tolerating po Objective Vitals I&O Vital Signs Date Time Temp Pulse Resp B/P Pulse Ox O2 Delivery O2 Flow Rate FiO2 04/07/17 07:59 97.6 73 17 125/63 95 04/07/17 05:56 97.9 74 18 133/74 98 04/06/17 23:52 98.8 68 18 132/69 98 04/06/17 23:04 18 04/06/17 23:04 18 04/06/17 21:02 98.4 104 18 122/64 94 04/06/17 14:45 97.8 104 20 114/57 95 04/06/17 11:21 97.6 90 22 137/63 95 I/O 04/06/17 04/06/17 04/06/17 04/07/17 04/07/17 04/07/17 07:00 15:00 23:00 07:00 15:00 23:00 Intake Total 1000 ml 600 ml 360 ml Output Total 0 ml Balance 1000 ml 600 ml 360 ml Intake Oral 600 ml 360 ml IV Total 1000 ml Output Urine Total 0 ml Stool Total 0 ml # Voids 3 2 # Bowel Movements 1 Laboratory Laboratory Tests Test 04/06/17 04/07/17 15:16 05:05 Lactic Acid Level 1.6 White Blood Count 7.0 Red Blood Count 4.14 Hemoglobin 12.6 Hematocrit 37.7 Mean Corpuscular Volume 91.2 Mean Corpuscular Hemoglobin 30.5 Mean Corpuscular Hemoglobin 33.4 Concent Red Cell Distribution Width 14.5 Platelet Count 232 Mean Platelet Volume 7.8 Neutrophils (%) (Auto) 78.8 Lymphocytes (%) (Auto) 13.7 Monocytes (%) (Auto) 5.7 Eosinophils (%) (Auto) 1.4 Basophils (%) (Auto) 0.4 Neutrophils # (Auto) 5.5 Lymphocytes # (Auto) 1.0 Monocytes # (Auto) 0.4 Eosinophils # (Auto) 0.1 Basophils # (Auto) 0.0 CBC Comment DIFF FINAL Differential Comment Sodium Level 141 Potassium Level 3.7 Chloride Level 105 Carbon Dioxide Level 26.3 Anion Gap 10 Blood Urea Nitrogen 6 Creatinine 0.68 Estimat Glomerular Filtration 84 Rate Random Glucose 107 Calcium Level 7.9 Physical Exam N CHEST: Chest is clear to auscultation and percussion. CARDIAC: Regular rate and rhythm with no murmur gallop or rubs. ABDOMEN: Soft, nondistended, nontender; no hepatosplenomegaly; bowel sounds are present in all four quadrants. EXTREMITIES: No clubbing, cyanosis, or edema. SKIN: Normal; no rash; no jaundice. Assessment and Plan Assessment: (1) Gastroenteritis Plan appears stable for DC sxs rapidly improved follow up as outpt Thanks Ata Narayan MD April 07, 2017 10:48
[2017-04-07 11:38] VITALS: BP 132/63; PULSE 89; RESP 20; TEMP 98.2; O2SAT 98
--- NOTE | 2017-04-07 12:18 | HHI.DCPOC ---
Discharge Care Plan Diagnosis: (1) Gastroenteritis (2) Laceration of left knee (3) Laceration of right lower leg Goals to Promote Your Health * To prevent worsening of your condition and complications * To maintain your health at the optimal level Directions to Meet Your Goals Take your medications as prescribed Follow your dietary instruction Follow activity as directed Keep your appointments as scheduled Take your immunizations and boosters as scheduled If your symptoms worsen call your PCP, if no PCP go to Urgent Care Center or Emergency Room Smoking is Dangerous to Your Health. Avoid second hand smoke Call the 24-hour hour crisis hotline for domestic abuse at [place] [place] April 07, 2017 11:31
== END 2017-04-07 12:16 | disposition home or self-care (01) ==
LOC: NEPC 03:54 → NEDA 09:29 → NEPHCDU 11:02
PROVIDERS: ADMIT Internal Medicine; ATTEND Internal Medicine
DX: K52.9 Noninfective gastroenteritis and colitis, unspecified (principal); E87.2 Acidosis; G89.29 Other chronic pain; E78.5 Hyperlipidemia, unspecified; S81.012A Laceration without foreign body, left knee, initial encounter; S81.812A Laceration without foreign body, left lower leg, initial encounter; E73.9 Lactose intolerance, unspecified; I10 Essential (primary) hypertension; M19.90 Unspecified osteoarthritis, unspecified site; I25.10 Atherosclerotic heart disease of native coronary artery without angina pectoris; E78.00 Pure hypercholesterolemia, unspecified; F41.9 Anxiety disorder, unspecified; M79.7 Fibromyalgia; Z95.1 Presence of aortocoronary bypass graft; Z79.82 Long term (current) use of aspirin; Z88.8 Allergy status to other drugs, medicaments and biological substances; Z88.1 Allergy status to other antibiotic agents; Z91.041 Radiographic dye allergy status; Z85.828 Personal history of other malignant neoplasm of skin; Z86.010 Personal history of colon polyps; T50.905A Adverse effect of unspecified drugs, medicaments and biological substances, initial encounter; X58.XXXA Exposure to other specified factors, initial encounter
CPT/HCPCS: 12005; 74177; 80048; 80076; 81001; 83605; 83690; 85025; 85610; 85730; 93005; 96361; 96374; 96375; 97163; 99285; C9113; G0378; G8987; G8988; J1200; J2270; J2405; J2765; J3411; J7030; Q9967

== ENCOUNTER → 2017-08-04 | Outpatient (CLI) | payer MEDICARE ==
[~2017-08-04] MED LIST changes: -HYDR-3366 PO; -HYOS0.127 PO; -NORC5TAB PO; +ZOFR4TAB3 SL
[2017-08-04 13:21] LABS: AUTOMATED NEUTROPHIL # 4.2 TH/MM3 (1.8-7.7); BASOPHIL % 0.6 % (0.0-2.0); EOSINOPHIL # 0.1 TH/MM3 (0-0.4); EOSINOPHIL % 1.1 % (0.0-4.0); HEMO FLAGS DIFF FINAL; LYMPH % 21.6 % (9.0-44.0); LYMPHOCYTE # 1.3 TH/MM3 (1.0-4.8); MEAN CELL VOLUME 92.7 FL (80.0-100.0); MEAN CORPUSCULAR HEMOGLOBIN 31.4 PG (27.0-34.0); MEAN CORPUSCULAR HGB CONC 33.8 % (32.0-36.0); MONO % 7.4 % (0.0-8.0); NEUT % 69.3 % (16.0-70.0); PLATELET COUNT 246 TH/MM3 (150-450); RED CELL DISTRIBUTION WIDTH 14.1 % (11.6-17.2); WHITE BLOOD COUNT 6.1 TH/MM3 (4.0-11.0)
[2017-08-04 13:38] LABS: ALT (GPT) 35 U/L (10-53); ANION GAP 8 MEQ/L (5-15); AST (GOT) 19 U/L (15-37); BLOOD UREA NITROGEN 12 MG/DL (7-18); CHLORIDE 102 MEQ/L (98-107); GLOMERULAR FILTRATION RATE 74 ML/MIN (>89); GLUCOSE,FASTING 92 MG/DL (74-99); SODIUM (NA) 137 MEQ/L (136-145)
[2017-08-04 13:48] LABS: ALKALINE PHOSPHATASE 101 U/L (45-117); HDL CHOLESTEROL 51.6 MG/DL (40.0-60.0); LDL CHOLESTEROL 79 MG/DL (0-99); TOTAL BILIRUBIN ADULT 0.5 MG/DL (0.2-1.0)
[2017-08-04 14:17] LABS: HEMOGLOBIN Ao 84.4 %; HEMOGLOBIN F 1.2 %; HEMOGLOBIN LA1C 1.9 %; HEMOGLOBIN P3 3.7 %
== END ==
LOC: PLAB 10:14
PROVIDERS: ATTEND Family Medicine
DX: E78.5 Hyperlipidemia, unspecified (principal); R73.01 Impaired fasting glucose; E04.2 Nontoxic multinodular goiter; E55.9 Vitamin D deficiency, unspecified
CPT/HCPCS: 36415; 80053; 80061; 82306; 83036; 84443; 85025

== ENCOUNTER → 2017-12-08 | Outpatient (CLI) | payer MEDICARE ==
[2017-12-08 13:48] LABS: ALBUMIN 3.5 GM/DL (3.4-5.0); AST (GOT) 21 U/L (15-37); BICARBONATE 27.9 MEQ/L (21.0-32.0); BLOOD UREA NITROGEN 13 MG/DL (7-18); CALCIUM 8.5 MG/DL (8.5-10.1); CHLORIDE 102 MEQ/L (98-107); CHOLESTEROL 177 MG/DL (120-200); CREATININE 0.77 MG/DL (0.50-1.00); GLOMERULAR FILTRATION RATE 73 ML/MIN (>89); GLUCOSE,FASTING 95 MG/DL (74-99); SODIUM (NA) 137 MEQ/L (136-145)
[2017-12-08 14:06] LABS: ALKALINE PHOSPHATASE 111 U/L (45-117); ALT (GPT) 35 U/L (10-53); CHOLESTEROL/ HDL RATIO 3.56 RATIO; HDL CHOLESTEROL 49.6 MG/DL (40.0-60.0); LDL CHOLESTEROL 93 MG/DL (0-99); TOTAL BILIRUBIN ADULT 0.4 MG/DL (0.2-1.0); TOTAL PROTEIN 6.9 GM/DL (6.4-8.2); TRIGLYCERIDES 170 MG/DL (42-150)
[2017-12-08 17:12] LABS: HEMOGLOBIN A1C 6.2 % (4.3-6.0)
== END ==
LOC: PLAB 09:30
PROVIDERS: ATTEND Family Medicine
DX: E78.5 Hyperlipidemia, unspecified (principal); R53.83 Other fatigue; E55.9 Vitamin D deficiency, unspecified; R73.01 Impaired fasting glucose
CPT/HCPCS: 36415; 80053; 80061; 82306; 83036; 84443